=== PATIENT | female | born 1990 | race Caucasian/White ===

== ENCOUNTER 2019-05-08 11:36 | Emergency (ER) | payer MEDICAID ==
[2019-05-08 11:50] VITALS: BP 138/82; PULSE 74
--- NOTE | 2019-05-08 12:12 | EDM.PDOC ---
ED HPI GENERAL MEDICAL PROBLEM - General Chief Complaint: Genitourinary Problem Stated Complaint: UTI SYMPTOMS Time Seen by Provider: 05/08/19 12:08 Source of Information: Reports: Patient History Limitations: Reports: No Limitations - History of Present Illness INITIAL COMMENTS - FREE TEXT/NARRATIVE: pt has marked uti symptoms that started in the last 2 days, Her las infection was early summer Onset: Other (yesterday) Duration: Hour(s): Location: Reports: Abdomen Associated Symptoms: Reports: No Other Symptoms - Related Data Allergies Allergy/AdvReac Type Severity Reaction Status Date / Time No Known Allergies Allergy Verified 05/08/19 11:54 Home Meds: Home Meds Levonorgestrel-Ethin Estradiol [Lutera-28 Tablet] 1 tab PO DAILY 04/27/16 [ History] Past Medical History - Past Health History Medical/Surgical History: Denies Medical/Surgical History [employer] History: Reports: - Infectious Disease History Infectious Disease History: Reports: Chicken Pox Social & Family History - Tobacco Use Smoking Status *Q: Never Smoker - Caffeine Use Caffeine Use: Reports: None ED ROS GENERAL - Review of Systems Review Of Systems: See Below Constitutional: Reports: Fatigue HEENT: Reports: No Symptoms Respiratory: Reports: No Symptoms Cardiovascular: Reports: No Symptoms Endocrine: Reports: No Symptoms GI/Abdominal: Reports: No Symptoms : Reports: Dysuria, Frequency, Urgency Musculoskeletal: Reports: No Symptoms Skin: Reports: No Symptoms Neurological: Reports: No Symptoms Psychiatric: Reports: No Symptoms ED EXAM, RENAL/ - Physical Exam Exam: See Below Text/Narrative:: pt has dyuria and frequency. This started yesterday for her. Exam Limited By: No Limitations General Appearance: Alert, Anxious GI/Abdominal: Non-Tender, Other (pt is not tender in flank) (Female) Exam: Deferred Rectal (Female) Exam: Deferred Back Exam: Normal Inspection Course - Vital Signs Last Recorded V/S: Last Vital Signs Temp 36.3 C 05/08/19 11:59 Pulse 74 05/08/19 11:59 Resp 16 05/08/19 11:59 BP 138/82 05/08/19 11:59 Pulse Ox 100 05/08/19 11:59 - Orders/Labs/Meds Labs: Laboratory Tests 05/08/19 Range/Units 12:00 Urine Color Yellow (YELLOW) Urine Appearance Clear (CLEAR) Urine pH 7.0 (5.0-8.0) Ur Specific [address] 1.010 (1.008-1.030) Urine Protein Negative (NEGATIVE) mg/dL Urine Glucose (UA) Negative (NEGATIVE) mg/dL Urine Ketones Negative (NEGATIVE) mg/dL Urine Occult Blood Large H (NEGATIVE) Urine Nitrite Negative (NEGATIVE) Urine Bilirubin Negative (NEGATIVE) Urine Urobilinogen 0.2 (0.2-1.0) EU/dL Ur Leukocyte Esterase Small H (NEGATIVE) Urine RBC 5-10 H (0-5) Urine WBC 10-20 H (0-5) Ur Epithelial Cells Few Amorphous Sediment Not seen Urine Bacteria Moderate Urine Mucus Not seen - Re-Assessments/Exams Free Text/Narrative Re-Assessment/Exam: 05/08/19 12:15 Urine looks very infected. Departure - Departure Time of Disposition: 12:10 Disposition: Home, Self-Care 01 Condition: Fair Clinical Impression: UTI (urinary tract infection) - Discharge Information Referrals: PCP,None [Primary Care Provider] - Forms: ED Department Discharge Care Plan Goals: push fluids, pyridium 200mg tid for 2 days, cipro 500mg bid #14 rtc if problems. Sepsis Event Note - Evaluation Sepsis Screening Result: No Definite Risk - Focused Exam Vital Signs: Vital Signs Temp Pulse Resp BP Pulse Ox 05/08/19 11:59 36.3 C 74 16 138/82 100 05/08/19 11:48 36.3 C 74 16 138/82 100 Date Exam was Performed: 05/08/19 Time Exam was Performed: 12:14
== END 2019-05-08 12:30 | disposition home or self-care (01) ==
LOC: JP.ED 11:36
DX: N39.0 Urinary tract infection, site not specified (principal)
CPT/HCPCS: 81001; 99283

== ENCOUNTER 2022-08-06 11:19 | Emergency (ER) | payer MEDICAID ==
[2022-08-06 11:35] VITALS: BP 138/101; PULSE 109
== END 2022-08-06 12:33 | disposition home or self-care (01) ==
LOC: JP.ED 11:19
DX: N30.01 Acute cystitis with hematuria (principal)
CPT/HCPCS: 81001; 87086; 87088; 87186; 99283

== ENCOUNTER 2022-10-04 16:44 | Emergency (ER) | payer MEDICAID ==
[2022-10-04 18:44] LABS: APPEARANCE,URINE CLOUDY (CLEAR); BILIRUBIN,URINE NEGATIVE (NEGATIVE); COLOR,URINE YELLOW (YELLOW); GLUCOSE,URINE NEGATIVE (NEGATIVE); KETONES,URINE NEGATIVE (NEGATIVE); LEUKOCYTE ESTERASE,URINE LARGE (NEGATIVE); NITRITE,URINE NEGATIVE (NEGATIVE); OCCULT BLOOD,URINE LARGE (NEGATIVE); PROTEIN,URINE 100 mg/dL (NEGATIVE); UROBILINOGEN,URINE 0.2 EU/dL (0.2-1.0)
[2022-10-04 18:54] LABS: AMORPHOUS SEDIMENT,URINE NOT SEEN; BACTERIA,URINE MANY; EPITHELIAL CELLS,URINE FEW; MUCUS,URINE NOT SEEN; WBC,URINE SEMI-PACKED (0-5)
== END 2022-10-04 19:33 | disposition home or self-care (01) ==
LOC: JP.ED 16:44
DX: N39.0 Urinary tract infection, site not specified (principal)
CPT/HCPCS: 81001; 99283